=== PATIENT | male | born 1970 | race Caucasian/White ===

== ENCOUNTER 2017-04-03 13:42 | Emergency (ER) | payer SELFPAY ==
[2015-05-12 12:00] VITALS: BMI 33.4
[~2017-04-03 13:42] MED LIST: ATIVAN1 MG PO; GLUCOPHAGE500 MG PO; OMEPRAZOLE40 MG PO; PAXIL30 MG PO; PROAIR HFA8.5 GM; SINGULAIR10 MG PO
[2017-04-03 14:08] LABS: BASOPHILS 0.5 % (0-2); EOSINOPHILS 1.1 % (0-7); HEMATOCRIT 43.8 % (42.0-54.0); HEMOGLOBIN 15.5 g/dL (13.5-17.5); IMMATURE GRANULOCYTES 0.2 % (0-5); LYMPHOCYTES 26.5 % (15-50); MCHC 35.4 g/dL (31.0-37.0); MCV 90.3 fL (80.0-100.0); MEAN PLATELET VOLUME 10.4 fL (7.4-10.4); MONOCYTES 6.8 % (2-11); NEUTROPHILS 64.9 % (40-80); PLATELET COUNT 207 10x3/uL (130-400); RBC 4.85 10x6/uL (4.20-6.10); RDW 12.5 % (11.5-14.5); WBC 8.8 10x3/uL (4.8-10.8)
[2017-04-03 14:25] LABS: ALKALINE PHOSPHATASE 73 U/L (46-116); ALT (SGPT) 56 U/L (10-68); CALC OSMOLALITY 279 mosm/kg (275-300); CHLORIDE - SERUM 104 mmol/L (98-107); CREATININE - SERUM 1.1 mg/dL (0.6-1.3); GLUCOSE 127 mg/dL (74-106); POTASSIUM - SERUM 3.3 mmol/L (3.5-5.1); PROTEIN - SERUM 7.3 g/dL (6.4-8.2); SODIUM 139 mmol/L (136-145); UREA NITROGEN 13 mg/dL (7-18); eGFR NON AFRICAN AMERICAN 75 mL/min (90-120)
[2017-04-03 14:38] LABS: CHOL - HDL RATIO 5.6 ratio (2.3-4.9); CHOLESTEROL, TOTAL 250 mg/dL (0-200); CKMB 0.3 U/L (0.0-3.6); CREATINE KINASE 109 UL (21-232); HDL CHOLESTEROL 45 mg/dL (32-96); LDL CHOLESTEROL 141 mg/dL (0-100); LDL-HDL RATIO 3.1 ratio (1.5-3.5); PRO BNP 40 pg/mL (0-125); TRIGLYCERIDE 324 mg/dL (30-200); TROPONIN-I < 0.017 ng/mL (0.000-0.060)
== END 2017-04-03 18:05 | disposition home or self-care (01) ==
LOC: D.ER 13:42
PROVIDERS: Family Medicine
DX: J06.9 Acute upper respiratory infection, unspecified (principal); J45.909 Unspecified asthma, uncomplicated; E11.9 Type 2 diabetes mellitus without complications; I10 Essential (primary) hypertension; K21.9 Gastro-esophageal reflux disease without esophagitis; F43.10 Post-traumatic stress disorder, unspecified

== ENCOUNTER 2017-11-18 06:09 | Emergency (ER) | payer SELFPAY ==
[2015-05-12 12:00] VITALS: BMI 33.4
== END 2017-11-18 11:05 | disposition home or self-care (01) ==
LOC: D.ER 06:09
DX: S60.222A Contusion of left hand, initial encounter (principal); S60.221A Contusion of right hand, initial encounter; S90.121A Contusion of right lesser toe(s) without damage to nail, initial encounter; V00.131A Fall from skateboard, initial encounter; Y93.51 Activity, roller skating (inline) and skateboarding; Y92.019 Unspecified place in single-family (private) house as the place of occurrence of the external cause; E11.9 Type 2 diabetes mellitus without complications; I10 Essential (primary) hypertension; K21.9 Gastro-esophageal reflux disease without esophagitis